=== PATIENT | male | born 1990 | race Caucasian/White ===

== ENCOUNTER 2018-03-17 03:13 | Emergency (ER) | payer OTHER ==
[~2018-03-17] VITALS: Ht 182.9 cm; Wt 72.6 kg
[~2018-03-17 03:13] MED LIST: AUGMENTIN 875875 MG PO; CEPHALEXIN 500500 M3 PO; DICLOXACILLIN250 M2 PO; FLOMAX0.4 MG PO; HYDROCODONE-AP1 EAC6 PO; IBUPROFEN 800800 M1 PO; MEDROLDOSEPACK PO; MOBIC7.5 MG PO; NORCO 5-325 TA1 EACH PO; RIFAMPIN 300 M300 M1 PO; TESSALON PERLE100 M1 PO; VENTOLIN HFA 1818 GM INH; ZOLOFT; ZPAK PO
[2018-03-17] MEDS ORDERED: CLONAZEPAM 0.50.5 M1 PO (03:24)
[2018-03-17 03:57] LABS: HEMATOCRIT 40.2 % (42.0-52.0); HEMOGLOBIN 14.1 gm/dL (14.0-18.0); MCH 32.8 pg (26.0-34.0); MCV 93.7 fL (80.0-100.0); NUCLEATED RBCS 0 /100WBC; PLATELET COUNT* 219 thou/uL (150-400); RBC 4.29 mil/uL (4.50-6.00); RDW-CV 12.6 % (10.5-14.5); WBC 9.5 thou/uL (4.0-11.0)
[2018-03-17 04:16] LABS: CALCIUM 8.7 mg/dL (8.5-10.1); CREATININE 0.8 mg/dL (0.6-1.3); POTASSIUM 3.3 mmol/L (3.5-5.1)
[2018-03-17 04:17] LABS: INR 1.1; PROTIME 11.1 Seconds (9.20-11.50)
[2018-03-17 04:19] LABS: ALBUMIN 3.9 g/dL (3.4-5.0); TOTAL BILIRUBIN 0.9 mg/dL (<0.1-1.0); TOTAL PROTEIN 6.9 g/dL (6.4-8.2)
[2018-03-17 06:11] LABS: ABSOLUTE EOSINOPHILS 0.1 thou/uL (0.0-0.7); ABSOLUTE LYMPHOCYTES 2.6 thou/uL (0.8-5.3); ABSOLUTE MONOCYTES 0.8 thou/uL (0.0-1.2); ABSOLUTE NEUTROPHILS 6.1 thou/uL (1.6-8.1); PLATELET ESTIMATE ADEQUATE
[2018-03-17 07:15] VITALS: BP 129/58
== END 2018-03-17 07:18 | disposition short-term general hospital (02) ==
LOC: M.ERS 03:13
PROVIDERS: Emergency Medicine
DX: S42.034A Nondisplaced fracture of lateral end of right clavicle, initial encounter for closed fracture (principal); S02.0XXA Fracture of vault of skull, initial encounter for closed fracture; F17.210 Nicotine dependence, cigarettes, uncomplicated; W14.XXXA Fall from tree, initial encounter; Y93.89 Activity, other specified; Y92.89 Other specified places as the place of occurrence of the external cause; Y99.8 Other external cause status

== ENCOUNTER 2018-09-23 11:07 | Emergency (ER) | payer OTHER ==
[~2018-09-23] VITALS: Ht 185.4 cm; Wt 68.0 kg
[~2018-09-23 11:07] MED LIST changes: +CLONAZEPAM 0.50.5 M1 PO
[2018-09-23 12:05] LABS: URINE BLOOD 3+ (Negative); URINE CLARITY CLEAR; URINE COLOR YELLOW; URINE GLUCOSE-RANDOM NEGATIVE (Negative); URINE KETONES NEGATIVE (Negative); URINE NITRITE-REFLEX NEGATIVE (Negative); URINE PROTEIN 3+ (Negative); URINE SPECIFIC GRAVITY >= 1.030 (1.005-1.030); URINE UROBILINOGEN 0.2 E.U./dl (0.2-1.0)
[2018-09-23 12:08] LABS: ICTOTEST (BILI CONFIRMATORY) Negative (Negative); URINE BILIRUBIN 1+ (Negative); URINE LEUKOCYTES-REFLEX 3+ (Negative)
[2018-09-23 12:12] LABS: BACTERIA-REFLEX >30 Many /HPF (None Seen); CASTS None Seen /LPF (None Seen); CRYSTALS None Seen /LPF (None Seen); SQUAMOUS 0-3 Few /LPF (0-3); URINE RBC 0-2 Rare /HPF (0-2); URINE WBC-REFLEX >25 Many /HPF (0-5)
[2018-09-23 12:18] LABS: CALCIUM 8.6 mg/dL (8.5-10.1); POTASSIUM 3.8 mmol/L (3.5-5.1)
[2018-09-23] MEDS ORDERED: DOXYCYCLINE 10100 MG PO (12:56)
[2018-09-23] MEDS ORDERED: HYDROCODONE-AP1 EAC6 PO (12:56)
[2018-09-23 13:16] VITALS: BP 100/64
== END 2018-09-23 13:17 | disposition home or self-care (01) ==
LOC: M.ERS 11:07
PROVIDERS: Emergency Medicine Emergency Medical Services
DX: N45.1 Epididymitis (principal); F17.210 Nicotine dependence, cigarettes, uncomplicated

== ENCOUNTER 2021-08-16 17:53 | Emergency (ER) | payer OTHER ==
[~2021-08-16] VITALS: Ht 185.4 cm; Wt 63.5 kg
[~2021-08-16 17:53] MED LIST changes: +DOXYCYCLINE 10100 MG PO
[2021-08-16] MEDS ORDERED: HYDROCODON-ACE1 EA11 PO (18:31)
[2021-08-16] MEDS ORDERED: TRIPLE ANTIBIOT28 G2 TOP (18:38)
[2021-08-16 18:58] VITALS: BP 141/70
== END 2021-08-16 18:59 | disposition home or self-care (01) ==
LOC: M.ERS 17:53
DX: T21.02XA Burn of unspecified degree of abdominal wall, initial encounter (principal); T31.0 Burns involving less than 10% of body surface; F17.210 Nicotine dependence, cigarettes, uncomplicated